=== PATIENT | male | born 1950 | race Caucasian/White ===

== ENCOUNTER 2019-07-25 10:53 | Inpatient (IN) ==
[2019-07-25] MEDS ORDERED: ATIVAN IV ONE ×2 (11:21→12:46)
--- NOTE | 2019-07-25 11:27 | EKG Report ---
Test Performed on : 07/25/2019 11:04:21 AM Test Reason : sob Blood Pressure : / mmHG Vent. Rate : 096 BPM Atrial Rate : 097 BPM P-R Int : 000 ms QRS Dur : 084 ms QT Int : 360 ms P-R-T Axes : 000 029 043 degrees QTc Int : 454 ms Accelerated Junctional rhythm. Abnormal ECG No previous ECGs available Unconfirmed Result
[2019-07-25 11:37] LABS: ALLEN TEST YES; BE -2.3 mmoll (-3.0-3.0); BLOOD TYPE ARTERIAL; HCO3-(ACT) 23.1 mmoll (20.0-26.0); METHB 0.3 % (0.0-1.5); MODALITY ROOM AIR; O2(CT) 10.4 mL/dL (15.0-23.0); O2HB 91.8 % (95.0-99.0); PCO2(98.6) 26 mmHg (35-45); PO2(98.6) 56 mmHg (60-100); SAMPLE BLOOD; SAO2 92.1 % (95.0-100.0)
[2019-07-25 11:41] LABS: BASO# 0.05 X1000 (0.0-0.2); BASO% 0.4 % (0.0-0.8); EOS# 0.13 X1000 (0.0-0.7); HEMATOCRIT 25.7 % (42.0-52.0); HEMOGLOBIN 8.5 g/dL (14.0-18.0); IMM GRAN# 0.07 X1000 (0.0-0.04); IMM GRAN% 0.5 % (0.0-0.5); LYMPH# 2.56 X1000 (1.2-3.4); LYMPH% 19.9 % (20.5-51.1); MCH 31.6 PG (27-31); MCHC 33.1 g/dL (33-37); MCV 95.5 FL (81-99); MONO# 0.69 X1000 (0.11-0.59); MONO% 5.4 % (1.7-9.3); MPV 12.4 FL (7.4-10.4); NEUT# 9.39 X1000 (1.4-6.5); NEUT% 72.8 % (42.2-75.2); PLT 264 X1000 (130-400); RBC 2.69 XMIL (4.7-6.1); WBC 12.89 X1000 (4.8-10.8)
--- NOTE | 2019-07-25 11:45 | Diag Imaging Result Doc PS360 ---
EXAM: CHEST-1 VIEW 07/25/2019 HISTORY: sob TECHNIQUE: AP portable at 1136 COMMENT: There is elevation of the left hemidiaphragm laterally. This may be due to fibrosis. The heart size and pulmonary vascularity are within normal limits. There are no previous chest radiographs. There is a similar appearance to the left hemidiaphragm on the topogram for the abdominal CT of 12/30/2015 however. IMPRESSION: No acute disease. Electronically signed by Franklyn Ponce 07/25/2019 11:42 AM
[2019-07-25 11:57] LABS: CALCIUM 9.1 mg/dL (8.8-10.2); CREATININE 1.2 mg/dL (0.7-1.2); POTASSIUM 4.9 mmol/L (3.5-5.1); TOTAL BILIRUBIN 0.25 mg/dL (0.20-1.00)
[2019-07-25 13:56] LABS: URINE SOURCE CLEAN CATCH
[2019-07-25 13:59] LABS: BILIRUBIN URINE NEGATIVE (NEGATIVE); BLOOD URINE NEGATIVE (NEGATIVE); COLOR YELLOW; GLUCOSE URINE NEGATIVE (NEGATIVE); KETONE URINE TRACE mg/dL (NEGATIVE); LEUKOCYTES URINE NEGATIVE (NEGATIVE); NITRITE URINE NEGATIVE (NEGATIVE); PH URINE 5.5; PROTEIN URINE NEGATIVE (NEGATIVE); SP GRAVITY URINE 1.019; TURBIDITY URINE CLEAR (CLEAR); UR EPITHELIAL CELLS <10 /HPF (<10); URINE BACTERIA NEGATIVE /HPF; URINE RBC <10 /HPF (<10); URINE WBC <10 /HPF (<10); UROBILINOGEN URINE NORMAL (NORMAL)
--- NOTE | 2019-07-25 14:07 | EKG Report ---
Test Performed on : 07/25/2019 11:41:35 AM Test Reason : REPEAT RHYTHM CHECK Blood Pressure : / mmHG Vent. Rate : 094 BPM Atrial Rate : 094 BPM P-R Int : 178 ms QRS Dur : 074 ms QT Int : 332 ms P-R-T Axes : 048 049 060 degrees QTc Int : 415 ms Normal sinus rhythm. Normal ECG When compared with ECG of 25-JUL-2019 11:04, (Unconfirmed) Sinus rhythm. has replaced Junctional rhythm. Unconfirmed Result
[2019-07-25 14:19] LABS: UR AMPHETAMINES QUAL NONE DETECTED (NONE DETECT); UR BARBITUATES QUAL NONE DETECTED (NONE DETECT); UR BENZODIAZEPIN QUAL PRESUMPTIVE POSITIVE (NONE DETECT); UR OPIATES QUAL NONE DETECTED (NONE DETECT)
[2019-07-25 14:20] LABS: UR CANNABINOIDS QUAL NONE DETECTED (NONE DETECT); UR COCAINE QUAL NONE DETECTED (NONE DETECT); UR METHADONE QUAL NONE DETECTED (NONE DETECT); UR OXYCODONE QUAL NONE DETECTED (NONE DETECT); UR PCP QUAL NONE DETECTED (NONE DETECT)
--- NOTE | 2019-07-25 15:15 | PROVIDER DOCUMENTATION ---
This chart was entered by Ivette Valentine Scribe, acting as scribe for Santana Arteaga MD. HPI-General Adult - General Chief Complaint: Dizziness Stated Complaint: SOB,LOW BP,DIZZINESS Time Seen by Provider: 07/25/19 11:16 Source: patient, family () Allergies/Adverse Reactions: Patient Allergies Allergy/AdvReac Type Severity Reaction Status Date / Time Sulfa (Sulfonamide Allergy Intermediate HIVES Verified 09/09/17 06:02 Antibiotics) [Sulfa(Sulfonamide Antibiotics)] Home Medications: Home Medication List Medication Instructions Recorded Confirmed Last Taken Type Alprazolam [Xanax] 1 mg PO HS 04/04/13 09/09/17 09/08/17 History Folic Acid/Multivit-Min/Lutein 1 each PO DAILY 04/04/13 09/09/17 09/08/17 History [Centrum Silver Chewable Tablet] Levothyroxine [Synthroid] 200 microgm PO DAILY 04/04/13 09/09/17 09/08/17 History Lisinopril [Zestril] 10 mg PO DAILY 04/04/13 09/09/17 09/08/17 History Tamsulosin [Flomax] 0.4 mg PO QHS 04/04/13 09/09/17 09/08/17 History Acetaminophen/Diphenhydramine 2 each PO HS 09/09/17 09/09/17 09/08/17 History [Tylenol Pm] Amoxicillin 500 mg PO TID #30 capsule 09/09/17 Unknown Rx Aspirin 81 mg PO QHS 09/09/17 09/09/17 09/08/17 History Ciproflox/Dexameth Otic Susp 4 drop LEFT EAR BID #1 bottle 09/09/17 Unknown Rx [Ciprodex Otic Suspension] Docusate Sodium [Stool Softener] 100 mg PO HS 09/09/17 09/09/17 09/08/17 History Magnesium 250 mg PO HS 09/09/17 09/09/17 09/08/17 History Mirtazapine 15 mg PO HS 09/09/17 09/09/17 09/08/17 History Naproxen 500 mg PO DAILY 09/09/17 09/09/17 09/08/17 History Ondansetron [Zofran Odt] 8 mg PO TID #30 tab.rapdis 09/09/17 Unknown Rx Sertraline HCl [Zoloft] 100 mg PO HS 09/09/17 09/09/17 09/08/17 History Triamterene/Hydrochlorothiazid 1 each PO DAILY 09/09/17 09/09/17 09/08/17 History [Dyazide 37.5-25 Capsule] Zinc 50 mg PO HS 09/09/17 09/09/17 09/08/17 History - History of Present Illness -Gen Adult Nature of Presenting Problems: 68 yowm presents to the ed with c/o 3 days of intermittent sob, tremors, numbness to forehead and BLE, dizziness and anxious. pt sts has an appointment with dr goff this afternoon but sts could not wait to see PCP. pt on exam is anxious, diaphoretic, pale (has hx of anemia), sob and c/o numbness to forehead and BLE. pt is c/o most about the stickers on his chest pulling his chest hair. pt sts he does not take pain medication and sts this morning sx became worse. Location of Pain/Injury: reports: face (numbness forehead), lower extremity (numnbness) Quality of Pain: reports: none Severity: reports: moderate Onset/Duration: reports: 3 days ago Timing: reports: still present, intermittent, getting worse (this am) Context/Activities at Onset: reports: light activity Modifying Factors: improves with: nothing Associated Symptoms: reports: diaphoresis, dizziness, shortness of breath, other (shaky in hands). denies: back/neck pain, chest pain, fever/chills, headaches, nausea, vomiting Similar Symptoms Previously?: No Recently seen or treated by another doctor?: No Review of Systems - Adult - REVIEW OF SYSTEMS - ADULT Constitutional: denies: chills, fever Eyes: reports: no symptoms reported Ears, Nose, Mouth & Throat: reports: no symptoms reported Cardiovascular: denies: chest pain, palpitations, syncope Respiratory: reports: see HPI, shortness of breath. denies: cough, excessive sputum production, wheezing Gastrointestinal: denies: abdominal pain, diarrhea, nausea, vomiting Genitourinary: reports: no symptoms reported Musculoskeletal: denies: back pain, neck pain Integumentary: reports: no symptoms reported Neurological: reports: see HPI, dizziness/vertigo, numbness (forehead and BLE), tremors. denies: ataxia, headache/migraines, loss of balance, slurred speech Psychiatric: denies: anxiety (denies hx), panic attacks (denies hx) Endocrine: reports: no symptoms reported Hematologic/Lymphatic: reports: no symptoms reported Allergic/Immunologic: reports: no symptoms reported All Other Systems: Reviewed and Negative Past History - Adult - PAST MEDICAL HISTORY-ADULT Review of Records: reports: Old Records Reviewed, Nursing Assessment Review, Medications Reviewed, Social history reviewed & non-contributory. Major Childhood Illnesses: reports: denies history Cardiovascular: reports: HTN Respiratory: reports: denies history Gastrointestinal: reports: denies history Genitourinary: reports: denies history Musculoskeletal: reports: denies history Hand Dominance: Right Handed Neurological: reports: denies history Psychiatric: reports: denies history Endocrine/Immune: reports: anemia, thyroid disorder Other Conditions: reports: denies history - PRIOR SURGERIES/PROCEDURES Surgical/Procedure History: reports: orthopedic (extremity), back/neck - IMMUNIZATION STATUS Childhood Immunizations: See Nurse Assessment Flu Vaccine: See Nurse Assessment - FAMILY HISTORY Family History: reviewed, not pertinent Physical Exam-General - PHYSICAL EXAM-ADULT Initial Vital Signs Reviewed: Yes - CONSTITUTIONAL General Appearance: alert, moderate distress, obese, anxious - EYES Eyes: pink conjunctivae, other (pinpoint pupils) - HEAD, EARS, NOSE, MOUTH & THROAT HENMT: moist mucous membranes, normal ENT inspection - NECK Neck: non-tender, full range of motion, normal inspection - RESPIRATORY Respiratory: chest non-tender, lungs clear, increased rate (26) - CARDIOVASCULAR Cardiovascular: normal peripheral pulses, regular rate, rhythm - CHEST (BREASTS) Chest/Breast: deferred - GASTROINTESTINAL (ABDOMEN) Abdominal Exam: normal bowel sounds, non tender, soft - GENITOURINARY Male Genitalia: normal prostate Rectal Exam: normal rectal tone, blood streaked stool. negative: hemorrhoids, mass Hemoccult Exam: heme positive stool - LYMPHATIC Lymphatic: no adenopathy - MUSCULOSKELETAL Back Exam: normal inspection, no CVA tenderness, no vertebral tenderness Extremity: normal range of motion, non-tender, normal inspection, normal capillary refill, pelvis stable, other (tremors noted in hands) - SKIN Integumentary: diaphoresis, pallor - NEUROLOGIC Neurologic: grossly normal - PSYCHIATRIC Psych/Mental Status: anxious, tearful Progress - PLAN OF CARE/RESULTS Progress/Plan/Lab Results: Vital Signs - 8 hr 07/25/19 11:11 Temperature 97.7 F Pulse Rate 98 H Respiratory Rate 22 Blood Pressure 128/82 O2 Sat by Pulse Oximetry 100 Laboratory Results - last 24 hr 07/25/19 11:03 POC Glucose 117 H Orders Category Date Time Status Nursing- Obtain EKG ONCE Care 07/25/19 11:18 Active CHEST-1 VIEW [RAD] Stat Exams 07/25/19 11:18 Ordered ABG [RESP] Routine Lab 07/25/19 11:21 Ordered BNP [PRO B-NATRIURETIC PEPTIDE] Stat Lab 07/25/19 11:05 Received CBC WITH ELECTRONIC DIFF [HEME] Stat Lab 07/25/19 11:05 Results COMPREHENSIVE METABOLIC PANEL [CHEM] Stat Lab 07/25/19 11:05 Received TROPONIN T Stat Lab 07/25/19 11:05 Received URINALYSIS W/POSS RFLX CULT [URINALYSIS] Stat Lab 07/25/19 11:18 Uncollected URINE DRUG SCREEN Stat Lab 07/25/19 11:22 Uncollected Lorazepam [Ativan] Med 07/25/19 11:21 Discontinued 0.5 mg IV NOW ONE EKG [EKG] Stat Ther 07/25/19 11:18 Draft Result Diagrams: 07/25/19 11:05 07/25/19 11:05 - REASSESSMENT Reassessment #1 Time Reassessed: 11:53 Status: improving Reassessment #2 Time Reassessed: 14:19 Status: improving - EKG 1 Time of EKG reading by physician:: 11:04 EKG Read and Signed by:: Santana Arteaga EKG Interpretation (*Must complete 3 of following elements*): Abnormal Rate: 96 Rhythm: accelerated junctional rhythm [place]: normal QRS: normal [place] Interval: normal ST Wave: normal 2 Time of EKG reading by physician:: 11:41 EKG Read and Signed by:: Santana Arteaga EKG Interpretation (*Must complete 3 of following elements*): Normal Rate: 94 Rhythm: nsr [place]: normal QRS: normal [place] Interval: normal ST Wave: normal Prior EKG Comparison: changes noted - XRAY 1 XRAY: Bilateral XRAY Study: Chest Impression: See EMR Report (EXAM: CHEST-1 VIEW 07/25/2019 HISTORY: sob TECHNIQUE: AP portable at 1136 COMMENT: There is elevation of the left hemidiaphragm laterally. This may be due to fibrosis. The heart size and pulmonary vascularity are within normal limits. There are no previous chest radiographs. There is a similar appearance to the left hemidiaphragm on the topogram for the abdominal CT of 12/30/2015 however. IMPRESSION: No acute disease. Electronically signed by Franklyn Ponce 07/25/2019 11:42 AM 07/25/19 1142 Interpreting Physician: Franklyn Ponce MD Dictated Date/Time: 07/25/19 1141 cc: Santana Arteaga MD; Nima Goff MD) - CONSULTS/PCP/HOSPITALIST Notification #1 *Consult/PCP/Hospitalist*: dr goff pcp Time Discussed: 14:34 Reason/Comments: phone consult #2 Consult: Dr Goff Time Discussed: 15:11 Reason/Comments: asked for routine orders and will see pt on floor Consult Disposition: Admit Departure - Departure Date of Disposition Decision: 07/25/19 Time of Disposition Decision: 15:12 DIAGNOSIS: Anemia, GI bleeding Disposition: ADMITTED INPATIENT 09 Certified Medical Emergency: Emergent Condition: Fair Referrals and Follow-Ups: Nima Goff MD [Primary Care Provider] - - Critical Care Note This patient required my direct & personal management of CC.: No Attestation - Physician/ KIMMIE Attestation Patient care was provided by Advanced Practice Provider:: No The physician spent face to face time with patient:: Yes Advanced Practice Provider documentation review:: Supervising physician onsite and consulted in the evaluation and care of this patient. The physician did have a face to face encounter with the patient. This chart was documented by the indicated scribe, (Ivette Valentine Scribe) and accurately reflects the services I performed and decisions made by me, Santana Modi MD, as attested by the provider's signature.
[2019-07-25] MEDS ORDERED: SODIUM CHLORIDE 0.9% INJ ONE ×2 (15:16→18:44)
[2019-07-25] MEDS ORDERED: PROTONIX IV ONE (15:16)
[2019-07-25] MEDS ORDERED: ZOFRAN IV PRN (18:32)
[2019-07-25] MEDS ORDERED: PROTONIX IV SCH (18:45)
[2019-07-25] MEDS: NS 1,000 ML IV SCH (19:09)
[2019-07-25] MEDS ORDERED: TYLENOL PO PRN (19:11)
[2019-07-25] MEDS: OFIRMEV 1000 MG/ISOTONIC SOLN 1,000 MG/100 ML BOTTLE IV PRN (19:30)
[2019-07-25 21:11] LABS: HEMATOCRIT 21.8 % (42.0-52.0); HEMOGLOBIN 7.1 g/dL (14.0-18.0)
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
[2019-07-26] MEDS: ATIVAN IV PRN ×2 (00:21→04:52)
[2019-07-26 02:10] LABS: HEMATOCRIT 21.6 % (42.0-52.0); HEMOGLOBIN 7.1 g/dL (14.0-18.0)
[2019-07-26] MEDS: OFIRMEV 1000 MG/ISOTONIC SOLN 1,000 MG/100 ML BOTTLE IV PRN (02:55)
[2019-07-26] MEDS: NS 1,000 ML IV SCH (08:35)
[2019-07-26] MEDS ORDERED: NS 500 ML IV SCH (09:00)
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
[2019-07-26] MEDS ORDERED: DIPRIVAN 1% ONE (10:50)
[2019-07-26] MEDS ORDERED: XYLOCAINE-MPF 2% ONE (10:51)
--- NOTE | 2019-07-26 11:14 | ENDOSCOPY OPERATIVE NOTE ---
[facility] ENDOSCOPY OPERATIVE NOTE , PATIENT: Rodolfo Mckeon ADMISSION DATE: 07/26/2019 MR#: [id number] : 1950 [facility]: [id number] EGD PROCEDURE REPORT PROCEDURE DATE: 07/26/2019 SURGEON: Gerson Kulkarni MD STATUS: inpatient RETAIL BUSINESS DEVELOPMENT MANAGER: PREOPERATIVE DIAGNOSIS: The patient is a 68 yr old male here for an EGD due to anemia and melena. PROCEDURE PERFORMED: EGD, diagnostic MEDICATIONS: Per Anesthesia TOPICAL ANESTHETIC: none CONSENT: The patient understands the risks and benefits of the procedure and understands that these r isks include, but are not limited to: sedation, allergic reaction, infection, perforation and/or bleeding. Alternative means of evaluation and treatment include, among others: physical exam, x-rays, and/or surgical intervention. The patient elects to proceed with this endoscopic procedure. HISORY AND PHYSICAL: 07/26/2019 function. Hand hygiene and appropriate measures for infection prevention was taken. After the risks, benefits and alternatives of the procedure were thoroughly explained, Informed consent was verified, confirmed and timeout was successfully executed by the treatment team. The patient was anesthetized with topical anesthesia and the LA37-v20 ([id number]) endoscope was introduced through the mouth and advanced to the proximal jejunum. Retroflex ion of the stomach was not performed. The gastroscope was then slowly withdrawn and removed. ESOPHAGUS: The mucosa of the esophagus appeared normal. The z-line was noted at 40cm from the incis ors. The z-line appeared normal. STOMACH: Normal gastric pouch. Will two visible deysi. No stigmata of recent bleeding. JEJUNUM / ILEUM: The mucosa appeared normal in the jejunum and ileum. Normal RYGB anatomy. SPECIMENS REMOVED: No ADVERSE EVENTS: There were no complications. POSTOPERATIVE DIAGNOSIS: 1. The mucosa of the esophagus appeared normal 2. The z-line was noted at 40cm from the incisors 3. Normal gastric pouch. Will two visible deysi. No stigmata of recent bleeding 4. The mucosa appeared normal in the jejunum and ileum 5. Normal RYGB anatomy RECOMMENDATIONS: Clear liquid diet Transition pantoprazole to PO once daily Prep with 4L golytely at 6PM NPO after MN Plan for diagnostic colonoscopy with Dr. Loza tomorrow REPEAT EXAM: Gerson Kulkarni MD eSigned: Gerson Kulkarni MD 07/26/2019 11:13 AM cc: PATIENT NAME: Rodolfo Mckeon MR#: [id number]
[2019-07-26 14:22] LABS: HEMATOCRIT 24.6 % (42.0-52.0)
[2019-07-26] MEDS ORDERED: GOLYTELY PO ONE (18:00)
--- NOTE | 2019-07-26 18:28 | PROGRESS NOTE ---
DATE: 07/26/2019 SUBJECTIVE: The patient was admitted yesterday with profound weakness and near-syncope. The patient's laboratory data was significant for a significant anemia and Hemoccult-positive stools. The patient was followed with serial hemoglobin and hematocrit evaluations overnight. As patient's hemoglobin decreased to 7.1 and he was symptomatic, he was transfused 1 unit of packed red blood cells. This morning, upon my arrival, patient noted no significant change in his symptoms. The patient was taken for EGD. Interestingly, no evidence of bleeding was identified. This afternoon, patient states he feels slightly improved after his blood transfusion. He is planning to prep for a colonoscopy tomorrow. Of note, patient states he has lost 30 pounds over the last several months. He describes this as being unexplained. He denies fevers, chills, nausea, vomiting, shortness of breath, or chest discomfort at present time. OBJECTIVE: Vital signs: T-max 97.8 degrees, heart rate 73 to 96, respirations 18 to 20, blood pressure 100 to 128 over 61 to 82. General: Well nourished, well developed, no acute distress, pale. Cardiovascular: Regular rate and rhythm. No significant murmurs, rubs, or gallops. Pulmonary: Clear to auscultation bilaterally. Abdomen: Soft, nontender, nondistended. Positive bowel sounds. Extremities: Moves all extremities well. No significant clubbing, cyanosis, or edema. Dermatologic: Evaluation reveals no evidence of rash. LABORATORY DATA: Hemoglobin and hematocrit after transfusion of 1 unit of packed red blood cells returned at 8.0 and 24.6. ASSESSMENT AND PLAN: 1. Gastrointestinal bleed - Upon admission, this is presumed to be upper in etiology secondary to melena. The patient was taken for EGD today. Interestingly, this returned negative. At this point, the source is likely small bowel versus colon. We will continue patient on Protonix q.12 hours. We will hold aspirin and anti-inflammatories. Colonoscopy is planned for tomorrow. If colonoscopy returns negative, we will plan CT scan of the abdomen and pelvis, as well as the probable pill endoscopy. 2. Anemia - Because patient was symptomatic, patient was transfused 1 unit of packed red blood cells once his hemoglobin reached 7.1. We will continue to follow serial hemoglobin and hematocrit evaluations. We will transfuse as necessary. 3. Syncopal episode - This likely was secondary to his blood loss anemia. Overall, patient states he feels better this afternoon. 4. Profound weakness - Once again, this is likely secondary to his acute illness. He has achieved some improvement after transfusion. We will follow this. 5. Hypothyroidism - We will resume thyroid replacement. 6. Osteoarthritis - We will continue to hold naproxen therapy. We will continue as-needed IV Tylenol. 7. Polymyalgia rheumatica - Patient currently is taking 2.5 mg of prednisone every other day. At this point, the risk outweigh the benefits of treatment. We will hold his steroids for now. We will consider whether adding steroid intervention is appropriate depending on his response to discontinuing steroid therapy. 8. Disposition - At this point, patient continues to require half-way care in a hospital setting. We will plan discharge home once appropriate. cc: Nima Goff MD
[2019-07-26] MEDS: ZOLOFT PO SCH (20:15)
[2019-07-26] MEDS: COLACE PO SCH (20:16)
[2019-07-26] MEDS: VITAMIN B-12 PO SCH (20:16)
[2019-07-26] MEDS: MAGNESIUM GLUCONATE PO SCH (20:16)
[2019-07-26] MEDS: REMERON PO SCH (20:16)
[2019-07-26] MEDS: FLOMAX PO SCH (20:16)
[2019-07-26 21:52] LABS: HEMATOCRIT 25.6 % (42.0-52.0); HEMOGLOBIN 8.4 g/dL (14.0-18.0)
[2019-07-27] MEDS: XANAX PO SCH ×2 (00:50→22:55)
[2019-07-27] MEDS: NS 1,000 ML IV SCH ×2 (04:22→17:26)
[2019-07-27] MEDS: SYNTHROID PO SCH (06:20)
[2019-07-27] MEDS ORDERED: PROTONIX PO SCH (07:00)
[2019-07-27] MEDS ORDERED: XYLOCAINE-MPF 2% ONE (07:03)
[2019-07-27] MEDS ORDERED: ROBINUL ONE (07:03)
[2019-07-27 07:07] LABS: HEMATOCRIT 23.2 % (42.0-52.0); HEMOGLOBIN 7.5 g/dL (14.0-18.0)
[2019-07-27] MEDS ORDERED: FENTANYL ONE (09:17)
[2019-07-27] MEDS ORDERED: DIPRIVAN 1% ONE ×2 (09:17→09:19)
[2019-07-27] MEDS ORDERED: ZOFRAN ONE (10:12)
--- NOTE | 2019-07-27 10:50 | ENDOSCOPY OPERATIVE NOTE ---
[facility] ENDOSCOPY OPERATIVE NOTE , PATIENT: Rodolfo Mckeon ADM DATE: MR #: [id number] : 1950 COLONOSCOPY PROCEDURE REPORT PROCEDURE DATE: 07/27/2019 SURGEON: Santo Loza MD STATUS: inpatient GENERATION TECHNOLOGIST: Noe Cloud and Sue Caruso PREOPERATIVE DIAGNOSIS: The patient is a 68 yr old male here for a colonoscopy due to anemia, non-sp ecific and GI bleed. PROCEDURE PERFORMED: Colonoscopy, diagnostic MEDICATIONS: Per Anesthesia PREP TYPE: GoLytely
[2019-07-27 13:45] LABS: HEMOGLOBIN 8.6 g/dL (14.0-18.0)
[2019-07-27] MEDS: CARAFATE PO SCH ×2 (17:26→22:51)
[2019-07-27] MEDS: SODIUM CHLORIDE 0.9% INJ SCH ×2 (17:26→21:06)
[2019-07-27] MEDS: PROTONIX IV SCH ×2 (17:26→21:06)
[2019-07-27] MEDS: VICON-C PO SCH (17:29)
[2019-07-27] MEDS: PERIDEX MT SCH (20:13)
[2019-07-27] MEDS: VITAMIN B-12 PO SCH (20:14)
[2019-07-27] MEDS: REMERON PO SCH (20:14)
[2019-07-27] MEDS: COLACE PO SCH (20:14)
[2019-07-27] MEDS: ZOLOFT PO SCH (20:14)
[2019-07-27] MEDS: FLOMAX PO SCH (20:14)
[2019-07-27] MEDS: MAGNESIUM GLUCONATE PO SCH (20:15)
--- NOTE | 2019-07-27 20:41 | PROGRESS NOTE ---
DATE: 07/27/2019 SUBJECTIVE: Upon my arrival this morning, patient stated overall he was feeling reasonably well. Patient was taken for a colonoscopy. Interestingly, only old blood in the entire colon extending up to the cecum was noted. No active bleeding was identified in the colon. With this finding and a negative EGD, it was felt that the bleed was likely secondary to bypass or Mckenna limb. The patient was transfused 2 units of packed red blood cells. Transfer to [facility] was offered, but patient preferred to be maintained here. This evening, patient is receiving 2 units of packed red blood cells. Overall, patient states he feels well. He denies current nausea, vomiting, shortness of breath, chest pain, or hematochezia or melena. OBJECTIVE: Vital Signs: T-max 98.5, heart rate 71 to 106, respirations 16 to 18, blood pressure 107 to 127 over 58 to 68. General: Well nourished, well developed male in no acute distress. Cardiovascular: Regular rate and rhythm. No significant murmurs, rubs, or gallops. Pulmonary: Clear to auscultation bilaterally. Abdomen: Soft, nontender, nondistended. Positive bowel sounds. Extremities: Moves all extremities well. No significant clubbing, cyanosis, or edema. Dermatologic: Reveals no evidence of rash. LABORATORY DATA: Hemoglobin 7.5, hematocrit 23.2. ASSESSMENT AND PLAN: 1. Gastrointestinal bleed - as above, EGD and colonoscopy revealed no evidence of acute bleeding. Old blood was noted throughout the colon. It is felt this likely is secondary to bypass or a Mckenna limb. I cannot rule out small intestinal bleed/pathology. At this point, our interventions are somewhat limited. We will continue IV Protonix every 12 hours. We will hold aspirin and anti-inflammatories. At this point, without a significant bleed, I do feel supportive care is most appropriate. If this resolves on its own, we will plan outpatient evaluation by a bariatric surgeon. If this persists, we will need to consider whether further intervention is warranted. Because of his weight loss and bleeding, we will plan CT scan of the abdomen tomorrow. 2. Anemia - as above, patient is being transfused 2 units of banked packed red blood cells. We will continue to follow serial hemoglobin and hematocrit evaluations. 3. Syncopal episode - this likely secondary to blood loss anemia. Overall, patient has achieved improvement. He has had no further episodes with transfusion. 4. Profound weakness - this too is secondary to profound anemia. We will continue to treat above- mentioned condition. 5. Hypothyroidism - we will continue patient on replacement. 6. Osteoarthritis - patient's naproxen has been held. We will continue patient on IV Tylenol as needed. 7. Polymyalgia rheumatica - patient's prednisone has been held while hospitalized. Prior to admission, he was taking 2.5 every other day. At the present time, he is asymptomatic. We will consider whether this can be discontinued, as his symptoms are controlled. 8. Disposition - at this point, the patient continues to require custodial care in a hospital setting. We will plan discharge home once appropriate. cc: Nima Goff MD
[2019-07-28] MEDS: NS 1,000 ML IV SCH (01:09)
[2019-07-28] MEDS: CARAFATE PO SCH ×4 (05:38→21:52)
[2019-07-28] MEDS: SYNTHROID PO SCH (06:38)
[2019-07-28 07:10] LABS: BASO# 0.03 X1000 (0.0-0.2); BASO% 0.4 % (0.0-0.8); EOS# 0.35 X1000 (0.0-0.7); EOS% 4.3 % (0.0-10.0); HEMATOCRIT 27.9 % (42.0-52.0); HEMOGLOBIN 9.2 g/dL (14.0-18.0); IMM GRAN# 0.02 X1000 (0.0-0.04); IMM GRAN% 0.2 % (0.0-0.5); LYMPH# 2.05 X1000 (1.2-3.4); LYMPH% 25.2 % (20.5-51.1); MCH 30.7 PG (27-31); MONO# 0.51 X1000 (0.11-0.59); MONO% 6.3 % (1.7-9.3); MPV 11.9 FL (7.4-10.4); NEUT# 5.18 X1000 (1.4-6.5); NEUT% 63.6 % (42.2-75.2); PLT 236 X1000 (130-400); RDW 16.7 % (11.5-14.5); WBC 8.14 X1000 (4.8-10.8)
[2019-07-28 07:35] LABS: ALB/GLOB RATIO 1.6; ALBUMIN 3.1 g/dL (3.5-5.0); CALCIUM 8.3 mg/dL (8.8-10.2); CREATININE 1.2 mg/dL (0.7-1.2); POTASSIUM 4.2 mmol/L (3.5-5.1); TOTAL BILIRUBIN 0.38 mg/dL (0.20-1.00)
[2019-07-28] MEDS: PERIDEX MT SCH ×3 (10:40→21:17)
[2019-07-28] MEDS: PROTONIX IV SCH ×2 (10:46→21:19)
[2019-07-28] MEDS: SODIUM CHLORIDE 0.9% INJ SCH ×2 (10:46→21:21)
[2019-07-28] MEDS: VICON-C PO SCH (10:54)
--- NOTE | 2019-07-28 12:01 | Diag Imaging Result Doc PS360 ---
EXAM: CT ABD/PELVIS W/PO AND IV CON INDICATION: GI bleed/ unexplained weight loss TECHNIQUE: This exam was performed using automated exposure control, adjustment of mA or kV according to patient size, and/or use of iterative reconstruction technique. COMPARISON: 12/30/2015 FINDINGS: There are fine calcified stones layering in the gallbladder lumen, stable. There is no evidence of pericholecystic inflammatory change. There is a vague focus of hypodensity involving the right hepatic lobe on image 37 of series 4 with no discrete enhancement. It is nonspecific. It measures up to 1.9 cm. It could represent focal fatty infiltration or possibly a cyst containing proteinaceous debris. It appears stable. The liver is unremarkable, otherwise. The spleen and adrenal glands are unremarkable. There is stable pancreatic atrophy, mainly at the head of the pancreas. The pancreas is unremarkable, otherwise. There are multiple renal cysts. Most of these can be seen on the previous study and a couple are slightly larger. A few appear to contain proteinaceous debris or blood products based on density. There are multiple intrarenal stones bilaterally that are nonobstructing. There is a 5 to 6 mm calcification in the pelvis on the left that is closely associated with the distal ureter. However, it appears to be stable as compared to the previous study in 2016. This could represent a chronic partially obstructing stone in the distal ureter. The left renal collecting system is mildly prominent but it is less so than the previous study. The urinary bladder is partially distended and is unremarkable, otherwise. The appendix is normal. There are a few sigmoid colonic diverticula but there is no evidence of diverticulitis. There is a short segment of the colon near the hepatic flexure that exhibits mild circumferential wall thickening. This may simply be due to peristalsis. However, by CT, a neoplasm cannot be excluded. There is evidence of a prior gastric bypass. The GI tract is grossly unremarkable, otherwise. There is no definite abdominal or pelvic lymphadenopathy. No focal inflammatory changes, free abdominal gas, or free fluid is identified. There is advanced spondylosis. There is no evidence of acute osseous abnormality. IMPRESSION: 1.Questionable mild circumferential wall thickening involving the colon near the hepatic flexure (see image 56, series 4). Please see above discussion. 2.Extensive bilateral nephrolithiasis with a calcification that is very closely associated with the distal left ureter but it appears stable as compared to the previous study. It may be a chronic partially obstructing stone. The left renal collecting system is mildly prominent but less so than the previous study. Please correlate clinically. 3.Other incidental/nonacute findings detailed above. Electronically signed by Jordi Cronin 07/28/2019 11:59 AM
--- NOTE | 2019-07-28 20:43 | CONSULTATION ---
DATE OF CONSULTATION: 07/28/2019 ATTENDING AND REFERRING PHYSICIAN: Dr. Goff. CHIEF COMPLAINT: GI bleed and anemia. HISTORY OF PRESENT ILLNESS: This 68-year-old male was admitted with a GI bleed and symptomatic anemia. He is currently undergoing evaluation for that. He states he has a long history of kidney stones and had shockwave lithotripsy by Dr. Berger in [place] about 3 years ago. He also has some obstructive voiding symptoms and is on Flomax 0.4 mg a day. The patient last saw Dr. Berger in early 2017. He states he thinks his PSA was recently checked (June 02). He states he is starting to have some increasing problems voiding. He has had no hematuria. He denies any flank pains. He had a CT scan with contrast today that reveals bilateral nonobstructing renal stones, bilateral renal cyst that appears stable and a possible left distal ureteral stone approximately 6 mm in diameter. This could be a phlebolith immediately adjacent to the ureter. There was no hydroureteronephrosis. PAST MEDICAL HISTORY: Obesity, cholelithiasis, depression, diabetes, history of diverticulitis, gout, hypertension, hypothyroidism, polymyalgia rheumatica. CURRENT MEDICATIONS: Documented on the chart and include Flomax at 0.4 mg a day. PAST SURGICAL HISTORY: Gastric bypass, right knee scope, left shoulder dislocation and clavicle fracture. SOCIAL HISTORY: He denies tobacco use for over 20 years. He denies alcohol use. ALLERGIES: He is allergic to sulfonamides. REVIEW OF SYSTEMS: He states he has some problems with depression but overall other than weakness and dizziness if he stands he is doing well. He states he has some problems walking. He feels his diabetes is under control. He denies recent pulmonary problems. He has had no chest pain. PHYSICAL EXAMINATION: A obese, age apparent, normally developed, white male, oriented in all ways and cooperative.HEENT: Normal for age. Lungs: Clear. Cardiovascular: Regular rate and rhythm. No murmurs appreciated. Abdomen: Well healed scars. Mildly protuberant with a large pannus. No hepatosplenomegaly appreciated, normal bowel sounds. Nontender. Back: No CVA tenderness. : Uncircumcised male. Both testes are down. Scrotal exam is normal. No inguinal hernias. Rectal: Normal sphincter tone. Prostate about 50 g, smooth and symmetric. Extremities: No clubbing, cyanosis, or edema. Neuro: No focal deficits. LABORATORY EVALUATION: White count of 8.14, hemoglobin 9.2, hematocrit of 27.9 and platelets 236,000. Serum electrolytes have a sodium 141, potassium 4.2, chloride 111, bicarb 22, BUN 19, creatinine 1.2. His PSA recorded in the chart in [address] stone search is as noted in the history of present illness. IMPRESSION: 1. Gastrointestinal bleed with symptomatic anemia. 2. Bilateral nonobstructing renal stones and simple renal cysts. 3. Possible left distal ureteral stone without obstruction. RECOMMEND: 1. Discussed with the patient cystoscopic exam, left retrograde ureteral pyelogram and if a stone is seen ureteroscopy and stone removal. Discussed that since he is asymptomatic without evidence of hydronephrosis this would be scheduled for Wednesday. He states he wants to think about this and further discuss it with Dr. Goff and Dr. Aguilar. This assumes his GI bleeding has stopped. 2. Discussed adding Avodart for obstructive voiding. Discussed that he could add another Flomax to his regimen but that could possibly contribute to hypotension. Discussed that Avodart will take 3 months before any noticeable improvement in voiding would occur. He states he will discuss this with Dr. Goff. Thank you for this consultation. cc: MD Nima Escamilla MD [facility]STER[facility]andi
[2019-07-28] MEDS: ZOLOFT PO SCH (21:17)
[2019-07-28] MEDS: FLOMAX PO SCH (21:18)
[2019-07-28] MEDS: VITAMIN B-12 PO SCH (21:18)
[2019-07-28] MEDS: COLACE PO SCH (21:18)
[2019-07-28] MEDS: REMERON PO SCH (21:19)
[2019-07-28] MEDS: XANAX PO SCH (21:19)
--- NOTE | 2019-07-28 22:27 | PROGRESS NOTE ---
DATE: 07/28/2019 SUBJECTIVE: Upon my arrival this morning, patient states he felt reasonably well after transfusions. Patient was taken for a CT scan of the abdomen and pelvis. Interestingly, this returned with questionable mild circumferential wall thickening involving the colon near the hepatic flexure. Extensive bilateral nephrolithiasis with a calcification that is very closely associated with the distal left ureter, but appears to be stable, was noted. This was felt to possibly be associated with a chronically partially obstructing stone with mildly prominent left renal collecting system. Dr. Zaragoza was consulted. Surgical intervention was offered. This evening, patient states his condition is largely unchanged. P.o. intake is adequate. Patient continues to have dark bowel movements. He denies fevers, chills, nausea, vomiting, shortness of breath, or chest discomfort. OBJECTIVE: Vital Signs: T-max 99.1 degrees, heart rate 67 to 116, respirations 16 to 18, blood pressure 109 to 118 over 60 to 70. General: Well nourished, well developed, in no acute distress. Cardiovascular: Regular rate and rhythm. No significant murmurs, rubs, or gallops. Pulmonary: Clear to auscultation bilaterally. Abdomen: Soft, nontender, nondistended. Positive bowel sounds. Extremities: Moves all extremities well. No significant clubbing, cyanosis, or edema. Dermatologic: Evaluation reveals no evidence of rash. LABORATORY DATA: White blood cell count 8.14, hemoglobin 9.2, hematocrit 27.9, platelet count 236,000. Sodium 141, potassium 4.2, chloride 111, bicarb 22, BUN 19, creatinine 1.2, glucose 96, calcium 8.3, total bilirubin 0.38, total protein 5.0, albumin 3.1, alkaline phosphatase 69, AST 9, ALT 6. ASSESSMENT AND PLAN: 1. Gastrointestinal bleed: Esophagogastroduodenoscopy returned negative. Colonoscopy suggested no evidence of acute bleeding, but old blood was noted throughout the colon. It was felt this likely was secondary to a bleed in the bypassed stomach or a Mckenna limb. Small intestine pathology is also to be considered. Unfortunately, our options are somewhat limited at the present time. For now, we will continue intravenous Protonix every 12 hours. We will hold antiplatelet agents and antiinflammatories. If the bleeding subsides, we will plan evaluation by a bariatric surgeon as an outpatient. If patient's bleeding persists, we will plan a transfer to [facility] for inpatient bariatric consultation and possible intervention on Wednesday. We will continue to support patient with transfusions as necessary. 2. Anemia: Thus far, patient has been transfused 3 units while hospitalized. When patient's hemoglobin decreases to 7, he becomes very symptomatic. Through the weekend, we will continue serial hemoglobin and hematocrit evaluations. We will transfuse for a hemoglobin less than 8. 3. Syncopal episode: This likely was secondary to blood loss anemia. He has had no further episodes since transfusions were initiated. 4. Profound weakness: Once again, this likely is secondary to anemia. We will remain aware. 5. Distal left ureteral calcification, possibly representing a chronic partially obstructing stone: I appreciate Dr. Zaragoza' consultation. Patient's renal function at the present time is acceptable. Because of his current condition, we will hold off on urologic intervention at present time. Once his gastrointestinal pathology has been addressed, we will plan to pursue urologic evaluation. If patient demonstrates renal dysfunction or progression of symptoms, we will be forced to do this on a more urgent basis. 6. Hypothyroidism: We will continue patient on replacement. 7. Osteoarthritis: Patient's naproxen has been held. We will continue intravenous Protonix as needed. 8. Polymyalgia rheumatica: Patient has been treated with prednisone 2.5 mg every other day. Since hospitalization, this has been held. His symptoms are currently controlled. We will continue to monitor this and resume if necessary. 9. Disposition: At this point, patient continues to require alf care in a hospital setting. We will plan discharge home once appropriate. cc: Nima Goff MD
[2019-07-28] MEDS: OFIRMEV 1000 MG/ISOTONIC SOLN 1,000 MG/100 ML BOTTLE IV PRN (23:59)
[2019-07-29] MEDS: MAGNESIUM GLUCONATE PO SCH ×2 (00:49→21:45)
[2019-07-29] MEDS: CARAFATE PO SCH (05:37)
[2019-07-29] MEDS: SYNTHROID PO SCH ×2 (05:37→06:10)
[2019-07-29 07:10] LABS: BASO# 0.03 X1000 (0.0-0.2); BASO% 0.4 % (0.0-0.8); EOS# 0.37 X1000 (0.0-0.7); EOS% 5.2 % (0.0-10.0); HEMATOCRIT 25.8 % (42.0-52.0); HEMOGLOBIN 8.3 g/dL (14.0-18.0); LYMPH# 2.33 X1000 (1.2-3.4); LYMPH% 32.5 % (20.5-51.1); MCH 30.2 PG (27-31); MCHC 32.2 g/dL (33-37); MCV 93.8 FL (81-99); MONO# 0.49 X1000 (0.11-0.59); MONO% 6.8 % (1.7-9.3); MPV 11.4 FL (7.4-10.4); NEUT# 3.95 X1000 (1.4-6.5); NEUT% 55.1 % (42.2-75.2); PLT 236 X1000 (130-400); RBC 2.75 XMIL (4.7-6.1); WBC 7.17 X1000 (4.8-10.8)
[2019-07-29 07:52] LABS: CALCIUM 8.2 mg/dL (8.8-10.2); CREATININE 1.2 mg/dL (0.7-1.2); POTASSIUM 3.6 mmol/L (3.5-5.1)
[2019-07-29] MEDS: PROTONIX IV SCH ×2 (09:14→21:46)
[2019-07-29] MEDS: SODIUM CHLORIDE 0.9% INJ SCH ×2 (09:14→21:47)
[2019-07-29] MEDS: VICON-C PO SCH (09:14)
[2019-07-29] MEDS: PERIDEX MT SCH ×2 (09:15→21:46)
[2019-07-29] MEDS ORDERED: NS 500 ML ONE (10:09)
[2019-07-29] MEDS ORDERED: NS 500 ML IV ONE (11:15)
[2019-07-29] MEDS ORDERED: SANDOSTATIN IV ONE (11:34)
--- NOTE | 2019-07-29 12:31 | PROGRESS NOTE ---
DATE: 07/29/2019 SUBJECTIVE: I spoke with Dr. Alvarenga and Dr. Goff this morning about this particular case which appears to be an upper GI bleed associated with bariatric surgery in the remote past. The patient has no complaints. He states he is not hurting. He is eating regular food and tolerating diet well with no other symptomatology other than melenic stools. OBJECTIVE: Vital Signs: 98.3, 89, 20, 128/68, 99% saturated on room air. PHYSICAL EXAMINATION: The patient is alert, oriented, conversive and appropriate. Sclerae are anicteric. Cardiovascular: Regular and not tachycardic. Lungs: Clear. Extremities: Show slightest trace edema in the pretibial tibial areas, but otherwise normal. LABORATORY: Hemoglobin is 8.3 down from 9.2 yesterday post transfusion. BUN 21, creatinine 1.2. ASSESSMENT AND PLAN: 1. The patient's gastrointestinal bleed continues. He is on IV Protonix, but it is quite likely that he will end up in surgery to try and correct this. He will continue on IV Protonix for now. We are going to transfuse another unit and recheck his hematocrit tomorrow. I have taken the liberty of adding a single dose of octreotide to try and cause some type of vasoconstriction in the splanchnic bed that may help. Hopefully this will stem the tide of bleeding and maybe he can self correct prior to surgery. 2. Anemia. Aware. He will be getting his 4th unit of packed cells today. 3. Syncopal episode. This is very likely due to his blood loss anemia. 4. Weakness. Aware. 5. The patient was found rather incidentally to have a left ureteral calcification. Dr. Zaragoza has been consulted and would like to take stone out, but for the time being I think that the GI bleed aspect is much more pressing and the procedure to remove the stone should be put off until he is more stable. 6. Hypothyroidism. Aware. 7. Polymyalgia rheumatica. The patient is off of prednisone at the present time. 8. The patient continues to require inpatient care. We will recheck labs tomorrow and continue the present therapy. We will transfuse as needed. cc: MD Nima Villaseñor MD MTDD
[2019-07-29] MEDS: XANAX PO SCH (21:45)
[2019-07-29] MEDS: ICAR-C PO SCH (21:45)
[2019-07-29] MEDS: FLOMAX PO SCH (21:45)
[2019-07-29] MEDS: ZOLOFT PO SCH (21:46)
[2019-07-29] MEDS: REMERON PO SCH (21:46)
[2019-07-29] MEDS: VITAMIN B-12 PO SCH (21:46)
[2019-07-29] MEDS: COLACE PO SCH (21:46)
--- NOTE | 2019-07-29 22:11 | GASTROENTEROLOGY PROGRESS NOTE ---
DATE: 07/29/2019 SUBJECTIVE: Patient is resting in chair. His is present at the bedside. The patient has not had any bowel movement today. He has continued to slowly drift his hematocrit down. He has received so far, 4 units of blood transfusion. Last transfusion was done yesterday. He denies any nausea, vomiting, vomiting blood. He denies any abdominal pain. He denies any bowel movements today. OBJECTIVE: Vital Signs: Temperature 98.6 degrees, pulse of 91, respiratory rate of 16, blood pressure 125/71, saturating 98% on room air. Body weight of 245 pounds 4 ounces. BMI of 31.5 kg/m2. General: Obese. Sitting in chair, in no acute distress. HEENT: Pale. No icterus. Neck: Supple. Abdomen: Obese, soft, nontender, nondistended. No guarding or rebound. Extremities: No cyanosis or clubbing. Neurologic: Alert, awake, oriented x3. LABORATORY AND DIAGNOSTIC DATA: Hemoglobin and hematocrit is 8.3 and 25.8, white count of 7.17, platelet count of 236,000. Sodium of 140, potassium 3.6, chloride of 108, bicarbonate of 22, anion gap 11, BUN of 21, creatinine of 1.2, glucose of 97, calcium 8.2. AST 9, ALT 6, alkaline phosphatase 69, total protein is 5, albumin of 3.1. Stool occult blood on 07/25/2019, was positive. Abdominal and pelvic CT scan on 08/14/2019, showed: 1. Questionable mild circumferential wall thickening involving the colon near the hepatic flexure. 2. Extensive bilateral nephrolithiasis with calcification that is very closely associated with the distal left ureter, but it appears stable as compared to the previous study. It may be a chronic, partially obstructing stone. The left renal collecting system is mildly prominent, but less so than the previous study. 3. A few sigmoid colonic diverticula were noted. No evidence of diverticulitis. There was evidence of prior gastric bypass. The GI tract is grossly unremarkable otherwise. There is advanced spondylosis and there is a vague focus of hyperdensity involving the right hepatic lobe. It is nonspecific, measures up to 1.9 cm. It could represent focal fatty infiltration or possibly a cyst containing proteinaceous debris. It appears stable. The liver is unremarkable otherwise. The spleen and adrenal glands are unremarkable. There is stable pancreatic atrophy mainly at the head of the pancreas. The pancreas is unremarkable otherwise. There are multiple renal cysts. IMPRESSION AND PLAN: 1. Gastrointestinal bleeding. He has received 4 units of blood transfusion. At this moment, we will try the full liquid diet to see if it helps with his GI bleeding. He will continue on PPIs b.i.d. We will transfuse as needed. We will start on Iron C b.i.d. 2. Anemia. Continue to watch for now. Transfuse as needed. 3. Status post gastric bypass. The patient will take small frequent meals and avoid any NSAIDs. 4. Chronic constipation. We will continue on Colace at bedtime. 5. Renal stones. Urology is on board. 6. Diverticulosis in sigmoid. Aware. 7. Hypothyroidism. He is on Synthroid once daily. 8. If the patient continues to drop his hematocrit, then we may have to do inpatient transfer to [facility] versus outpatient followup with Bariatric surgeon at [place]. In the interim, we will continue with supportive care. The above plans were discussed with the patient and family at bedside, and all questions were answered. Please call us with any further questions. cc: MD Nima Nesbitt MD MTDKandi
[2019-07-30] MEDS: SYNTHROID PO SCH (06:19)
[2019-07-30 06:46] LABS: BASO# 0.03 X1000 (0.0-0.2); BASO% 0.4 % (0.0-0.8); EOS# 0.48 X1000 (0.0-0.7); EOS% 5.7 % (0.0-10.0); HEMATOCRIT 28.5 % (42.0-52.0); HEMOGLOBIN 9.1 g/dL (14.0-18.0); LYMPH# 2.18 X1000 (1.2-3.4); LYMPH% 25.8 % (20.5-51.1); MCH 30.5 PG (27-31); MCHC 31.9 g/dL (33-37); MCV 95.6 FL (81-99); MONO% 7.1 % (1.7-9.3); MPV 11.2 FL (7.4-10.4); NEUT# 5.16 X1000 (1.4-6.5); PLT 256 X1000 (130-400); RBC 2.98 XMIL (4.7-6.1); RDW 16.1 % (11.5-14.5); WBC 8.45 X1000 (4.8-10.8)
[2019-07-30 07:14] LABS: CALCIUM 7.6 mg/dL (8.8-10.2); CREATININE 1.4 mg/dL (0.7-1.2); POTASSIUM 4.2 mmol/L (3.5-5.1)
[2019-07-30] MEDS: VICON-C PO SCH ×2 (09:15→13:47)
[2019-07-30] MEDS: PERIDEX MT SCH ×2 (09:15→21:55)
[2019-07-30] MEDS: SODIUM CHLORIDE 0.9% INJ SCH ×2 (09:15→22:07)
[2019-07-30] MEDS: PROTONIX IV SCH ×2 (09:15→21:55)
[2019-07-30] MEDS ORDERED: SANDOSTATIN IV ONE (09:25)
--- NOTE | 2019-07-30 10:10 | PROGRESS NOTE ---
DATE: 07/30/2019 SUBJECTIVE: The patient has no complaints. The patient is dressed in a T-shirt and gym shorts, sitting up in the chair. He states that he feels quite well. He had a bowel movement this morning which he described as "black". He has no abdominal pain. He is confused as to why he was put back on a liquid diet. OBJECTIVE: Vital Signs: 98.0, 78, 112/67, 96% saturated on room air. Physical Examination: General: He is a well-developed, well-nourished white male in no acute distress. Lungs: Clear. Cardiovascular: Regular. Neuropsychiatric: Normal. Laboratory: White cell count is 8.45, hemoglobin is 9.1 which is up from 8.3 after receiving 1 unit of packed red cells yesterday. BUN is 18, creatinine is slightly elevated at 1.4. ASSESSMENT AND PLAN: 1. The patient continues on intravenous Protonix. Dr. Loza has discontinued his Carafate and put him back on a liquid diet. The patient received 1 unit of packed red cells yesterday and his hemoglobin went up an appropriate amount. There were no significant side effects of his octreotide injection. I want to repeat that today in the hopeful wish that it would help to vasoconstrict blood vessels in the area of the bleed and maybe slow the amount of bleeding that he is undergoing. 2. The patient's anemia continues. He is symptomatic with hemoglobins less than 8. He seems to be well above that today. We will see what it is tomorrow. 3. Syncopal episode. Aware. Likely due to blood loss anemia. 4. Weakness. Aware. 5. The patient's left ureteral calculus is being followed by Dr. Zaragoza. That is a secondary concern at the present time due to the severity of gastrointestinal bleeding. We will need to monitor his creatinine a little more closely since it did go up. I do not believe he had significant hydronephrosis on that side but we will again need to be aware of this. 6. Hypothyroidism. Aware. 7. Polymyalgia rheumatica. The patient is off prednisone. 8. The patient continues to require inpatient monitoring of his hemoglobin and hematocrit. Dr. Goff will discuss definitive therapy and possible transfer tomorrow. The patient is aware of this. There were no family members present today. cc: MD Nima Villaseñor MD
[2019-07-30] MEDS: ICAR-C PO SCH ×2 (13:45→21:55)
[2019-07-30 16:47] LABS: HEMATOCRIT 31.7 % (42.0-52.0); HEMOGLOBIN 10.3 g/dL (14.0-18.0); MCH 30.6 PG (27-31); MCHC 32.5 g/dL (33-37); MCV 94.1 FL (81-99); MPV 11.5 FL (7.4-10.4); RBC 3.37 XMIL (4.7-6.1); RDW 15.9 % (11.5-14.5); WBC 9.26 X1000 (4.8-10.8)
--- NOTE | 2019-07-30 18:31 | GASTROENTEROLOGY PROGRESS NOTE ---
DATE: 07/30/2019 SUBJECTIVE: Patient resting in chair, his present bedside. Patient had 2 bowel movements today which were dark and formed stools. He denies any nausea, vomiting, vomiting blood. Denies any bright red blood in the stools. He feels slightly weak today than yesterday. Yesterday he had no bowel movement the whole day. Vitals: Temperature 98.5 degrees, pulse 68, respiratory rate 18, blood pressure 109/60 saturating 100% room air, body weight of 245 pounds 4 ounces, BMI of 31.5 kg meter square. Patient is obese sitting in chair in no acute distress. HEENT: Pale conjunctivae, no icterus. Neck: Supple. Abdomen: Obese, soft, nontender, nondistended. No guarding, no rebound. Extremities: No cyanosis, clubbing. Neuro: He was alert, awake, oriented. LABS: Hemoglobin and hematocrit 9.1 and 28.5, white count of 8.45, platelet count 256,000, sodium 140, potassium 4.2, chloride 100, bicarb 24, BUN of 18, creatinine 0.4, glucose of 98, calcium is 7.6. IMPRESSION AND PLAN: 1. Gastrointestinal bleeding, will continue supportive care. He has so far received 4 unit blood transfusion. He had 2 bowel movements today which were formed dark in color, we will repeat his CBC today, will continue PPIs b.i.d., will transfuse as needed. 2. Anemia. Will continue to watch for now, transfuse as needed, will start on iron C b.i.d. 3. Status post gastric bypass. Patient will take small frequent meals, avoid any NSAIDs. 4. Renal stones, urology is on board. 5. Chronic constipation. Will continue Colace at bedtime. He had 2 bowel movements today. 6. Hypothyroidism he is on Synthroid. 7. He has received 2 doses of octreotide per the primary care team which possibly can help with vasoconstriction the mesenteric vessels. 8. The patient will schedule an outpatient Bariatric surgeon, the patient's family interested in seeing Dr. William Trujillo in [place], they will call in the morning to schedule outpatient appointment. 9. Polymyalgia rheumatica aware. 10. History of syncopal episode and weakness aware. 11. The above plan of care discussed with the patient and the family bedside and all questions answered. Please call us with any further questions. cc: MD Nima Nesbitt MD MTDD
[2019-07-30] MEDS: COLACE PO SCH (21:55)
[2019-07-30] MEDS: XANAX PO SCH (21:55)
[2019-07-30] MEDS: VITAMIN B-12 PO SCH (21:55)
[2019-07-30] MEDS: FLOMAX PO SCH (21:55)
[2019-07-30] MEDS: ZOLOFT PO SCH (21:55)
[2019-07-30] MEDS: REMERON PO SCH (21:55)
[2019-07-30] MEDS: MAGNESIUM GLUCONATE PO SCH (22:07)
--- NOTE | 2019-07-31 04:09 | GASTROENTEROLOGY PROGRESS NOTE ---
DATE: 07/28/2019 The patient was not in the room at the time of visitation. His hemoglobin is 9.[address] of the abdomen and pelvis showed questionable mild circumferential wall thickening involving the colon near the hepatic flexure, extensive bilateral nephrolithiasis with a calcification that is very closely associated with the distal left ureter, which appears stable as compared to prior study, may be a chronic partially obstructing stone. The left renal collecting system is mildly prominent but less so than previous study. There is a 1.9 cm nonspecific hypodensity in the right hepatic lobe of the liver, which may represent focal fatty infiltration and possibly a cyst containing proteinaceous debris. His last blood transfusion was on 07/27. He is currently on PPI, [*]bowel regimen, holding any NSAIDs or blood thinners. If he continues to have bleeding, he would need a capsule endoscopy. This can be done as an outpatient as long as he maintains his current hemoglobin and does not exhibit further melena or drop in hematocrit. Dr. Loza will be following over the weekend. Please call if any questions or concerns. cc: Nima Goff MD
[2019-07-31] MEDS: SYNTHROID PO SCH (06:21)
[2019-07-31 06:57] LABS: BASO# 0.02 X1000 (0.0-0.2); BASO% 0.3 % (0.0-0.8); EOS# 0.31 X1000 (0.0-0.7); EOS% 4.4 % (0.0-10.0); HEMATOCRIT 25.8 % (42.0-52.0); HEMOGLOBIN 8.2 g/dL (14.0-18.0); LYMPH% 22.9 % (20.5-51.1); MCH 30.9 PG (27-31); MCHC 31.8 g/dL (33-37); MCV 97.4 FL (81-99); MONO# 0.48 X1000 (0.11-0.59); MONO% 6.9 % (1.7-9.3); MPV 11.4 FL (7.4-10.4); NEUT# 4.59 X1000 (1.4-6.5); NEUT% 65.5 % (42.2-75.2); PLT 257 X1000 (130-400); RBC 2.65 XMIL (4.7-6.1); RDW 15.6 % (11.5-14.5)
[2019-07-31 07:06] LABS: CALCIUM 7.5 mg/dL (8.8-10.2); CREATININE 1.3 mg/dL (0.7-1.2); POTASSIUM 4.2 mmol/L (3.5-5.1)
[2019-07-31] MEDS: PERIDEX MT SCH ×3 (09:13→20:09)
[2019-07-31] MEDS: PROTONIX IV SCH ×2 (09:13→20:10)
[2019-07-31] MEDS: ICAR-C PO SCH ×2 (09:13→20:09)
[2019-07-31] MEDS: VICON-C PO SCH (09:13)
[2019-07-31] MEDS: SODIUM CHLORIDE 0.9% INJ SCH ×2 (09:20→20:10)
[2019-07-31] MEDS ORDERED: NS 500 ML ONE ×2 (11:12→17:27)
--- NOTE | 2019-07-31 11:27 | PROVIDER PROGRESS NOTE ---
Progress Note SUBJECTIVE: Mr. Mckeon was sitting at the side of the bed, was at the bedside. He nad no bowel movements, but stated 'yesterday they were dark and formed stools', He denies any nausea, vomiting, or vomiting blood but his hemaglobin and hematacrit is dropping. Vitals: Temperature 98.3 degrees, pulse 86, respiratory rate 16, blood pressure 118/70, saturating 100% room air, body weight of 245 pounds 4 ounces, BMI of 31.5 kg meter square. Patient is obese sitting at the side of the bed, no acute distress. HEENT: Pale conjunctivae, no icterus. Neck: Supple. Abdomen: Obese, soft, nontender, nondistended. No guarding, no rebound. Extremities: No cyanosis, clubbing. Neuro: AO x 3 LABS: Hemoglobin and hematocrit 8.2 and 25.8, white count of 7.0, platelet count 257,000, sodium 141, potassium 4.2, chloride 110, bicarb 22, BUN of 17, creatinine 1.3, glucose of 108, calcium is 7.5. IMPRESSION AND PLAN: 1. Gastrointestinal bleeding, will continue supportive care. He has so far received 4 unit blood transfusion. No bowel movements today but yesterday it was formed dark in color, we will repeat his CBC today, will continue PPIs b.i.d., will transfuse as needed. 2. Anemia. Will continue to watch for now, PCP has ordered to transfuse one un it of PRCB today, he is on iron C b.i.d. 3. Status post gastric bypass. Patient will take small frequent meals, avoid any NSAIDs. 4. Renal stones, urology is on board. 5. Chronic constipation. Will continue Colace at bedtime. Had no bowel movements today. 6. Hypothyroidism he is on Synthroid. 7. He has received 2 doses of octreotide per the primary care team which possibly can help with vasoconstriction the mesenteric vessels. 8. The patient will schedule an outpatient Bariatric surgeon, the patient's family interested in seeing Dr. William Trujillo in [place], awaiting a call to schedule outpatient appointment. 9. Polymyalgia rheumatica aware. 10. History of syncopal episode and weakness aware. 11.. Repeat EGD and colonoscopy if the hemaglobin and hematacrit values keep park pping. 12. The above plan of care discussed with the patient and the family bedside and all questions answered. Please call us with any further questions. Signed : Asia FERNANDO (Asia Cantor) Spoke with Dr Goff and patient has started rectal bleeding and RBC tagged scan shows possible accumulation in the rectum. Will schedule for Colonoscopy with Dr Kulkarni in AM. Patient seen and examined. Agree with the above plan of care. Please call us with any further questions. (Santo Loza.)
[2019-07-31] MEDS ORDERED: GOLYTELY PO ONE (14:00)
[2019-07-31 15:26] LABS: HEMATOCRIT 28.9 % (42.0-52.0); HEMOGLOBIN 9.4 g/dL (14.0-18.0)
--- NOTE | 2019-07-31 16:39 | Diag Imaging Result Doc PS360 ---
EXAM: GI BLEED 07/31/2019 HISTORY: gi bleed TECHNIQUE: 21.2 mCi of technetium pertechnetate and cold PYP with scanning over the abdomen and pelvis. COMMENT: There is some accumulation of activity in the area of the rectum. This dissipates after about 45 minutes into the scan. Otherwise there is no definite focal accumulation of radiotracer to suggest a bleeding focus. IMPRESSION: The possibility of a bleeding focus in the rectum cannot be excluded. Electronically signed by Franklyn Ponce 07/31/2019 4:36 PM
[2019-07-31] MEDS: XANAX PO SCH (20:08)
[2019-07-31] MEDS: COLACE PO SCH (20:09)
[2019-07-31] MEDS: MAGNESIUM GLUCONATE PO SCH (20:09)
[2019-07-31] MEDS: VITAMIN B-12 PO SCH (20:09)
[2019-07-31] MEDS: REMERON PO SCH (20:09)
[2019-07-31] MEDS: FLOMAX PO SCH (20:10)
[2019-07-31] MEDS: ZOLOFT PO SCH (20:10)
[2019-07-31 20:49] LABS: HEMATOCRIT 31.1 % (42.0-52.0); HEMOGLOBIN 10.3 g/dL (14.0-18.0)
--- NOTE | 2019-07-31 21:51 | PROGRESS NOTE ---
DATE: 07/31/2019 SUBJECTIVE: Upon my arrival this morning, patient stated he felt reasonably well. Examination revealed pale conjunctivae. Hemoglobin and hematocrit was noted to decrease from yesterday. Soon after my evaluation, patient passed a large bowel movement which was primarily maroon in color. The patient was noted to have lightheadedness associated. The patient was typed and crossed 1 unit of packed red blood cells. Throughout the morning, patient had 3 additional maroon stools. Another unit of blood was typed and crossed for transfusion. Dr. Kulkarni was contacted. A bleeding scan was performed. This revealed the possibility of a bleeding focus in the rectum. This evening upon my arrival, patient voiced concern. Patient stated he felt reasonably well without significant fatigue or shortness of breath. He was receiving his 2nd unit of blood. Patient is prepared for a transfer to [facility] for intervention. There has been no evidence of fevers, chills, nausea or vomiting. OBJECTIVE: T-max 98.3 degrees, heart rate 84 to 105, respirations 14 to 18, blood pressure 101 to 142 over 70 to 81.General: Well nourished, well developed, no acute distress. Cardiovascular: Regular rate and rhythm. No significant murmurs, rubs, or gallops. Pulmonary: Clear to auscultation bilaterally. Abdomen: Soft, nontender, nondistended. Positive bowel sounds. Extremities: Moves all extremities well. No significant clubbing, cyanosis, or edema. Dermatologic: Evaluation reveals no evidence of rash. LABORATORY DATA: White blood cell count 7.00, hemoglobin 9.4, hematocrit 28.9, platelet counts 257,000. Sodium 141, potassium 4.2, chloride 110, bicarb 22, BUN 17, creatinine 1.3, glucose 108, calcium 7.5. ASSESSMENT AND PLAN: 1. Gastrointestinal bleed-as described on previous notes, esophagogastroduodenoscopy returned negative. Colonoscopy suggests old blood throughout the colon but without evidence of acute bleed. Differential diagnosis [*] includes a small intestinal bleed as well as bleeding from the bypass stomach or Mckenna limb. We attempted conservative management with IV Protonix, IV octreotide, and time. Despite this he continues to have bleeding. Will plan transfer to [facility] for further small-bowel evaluation and possible bariatric surgery consultation. We will continue to hold anti-platelet agents and anti-inflammatories. 2. Anemia-patient has been transfused a total of 6 units of packed red blood cells while hospitalized. We will continue to follow serial hemoglobin and hematocrit evaluations. 3. Syncopal episode- patient was diagnosed upon admission associated with blood loss anemia. He has had intermittent lightheadedness associated with bleeding but no further syncopal episodes. 4. Profound weakness- once patient's anemia has been addressed, he has achieved improvement. We will continue to follow serial hemoglobin and hematocrit evaluations. We will follow for any further evidence of gastrointestinal bleeding. 5. Distal left ureteral calcification, possibly representing a chronic partially obstructing stone-this was diagnosed incidentally per CT scan. Renal function remains acceptable. He denies significant symptoms. At present time, his gastrointestinal bleeding is more pressing. We will address this as above. We will plan to address his ureteral calcification once his GI bleed has been resolved. 6. Hypothyroidism-we will continue patient on replacement. 7. Osteoarthritis-patient's naproxen has been held. We will continue IV acetaminophen as needed. 8. Polymyalgia rheumatica-upon admission, patient was treated with prednisone 2.5 mg every other day. This has been held since hospitalization. The patient's myalgias are reasonably controlled at present time. We will continue to follow this closely as patient may need steroid intervention resumed. 9. Disposition-at this point, patient continues to require half-way care in a hospital setting. We will plan transfer to [facility] once able. cc: Nima Goff MD
[2019-08-01 02:00] LABS: HEMATOCRIT 29.2 % (42.0-52.0); HEMOGLOBIN 9.7 g/dL (14.0-18.0)
[2019-08-01] MEDS: SYNTHROID PO SCH (06:17)
[2019-08-01] MEDS: PERIDEX MT SCH (08:09)
[2019-08-01] MEDS: ICAR-C PO SCH (08:10)
[2019-08-01] MEDS: VICON-C PO SCH (08:10)
[2019-08-01] MEDS: PROTONIX IV SCH (08:11)
[2019-08-01] MEDS: SODIUM CHLORIDE 0.9% INJ SCH (08:11)
[2019-08-01 10:09] LABS: HEMATOCRIT 34.4 % (42.0-52.0); HEMOGLOBIN 11.2 g/dL (14.0-18.0)
[2019-08-01 10:18] VITALS: BP 110/71
--- NOTE | 2019-08-01 10:42 | PROVIDER PROGRESS NOTE ---
Progress Note S: No acute overnight events. No further rectal bleeding. Patient is awaiting transfer for evaluation of GI bleed. O: Last Vital Signs Temp 98.6 F 08/01/19 10:16 Pulse 64 08/01/19 10:16 Resp 18 08/01/19 10:16 BP 110/71 08/01/19 10:16 Pulse Ox 96 08/01/19 10:16 Height 6 ft 2 in Weight 245 lb 4 oz GEN: awake, alert, sitting upright HEENT: anicteric, MMM NECK: no JVD PULM: normal WOB ABD: obese EXT: no cce NEURO: nonfocal LABS: 07/31/19 07/31/19 08/01/19 06:20 06:20 01:55 WBC 7.00 Hgb 8.2 L D 9.7 L Plt Count 257 Sodium 141 Potassium 4.2 Chloride 110 H Carbon Dioxide 22 L Anion Gap 9 BUN 17 Creatinine 1.3 H Glucose 108 H EXAM: GI BLEED 07/31/2019 HISTORY: gi bleed TECHNIQUE: 21.2 mCi of technetium pertechnetate and cold PYP with scanning over the abdomen and pelvis. COMMENT: There is some accumulation of activity in the area of the rectum. This dissipates after about 45 minutes into the scan. Otherwise there is no definite focal accumulation of radiotracer to suggest a bleeding focus. IMPRESSION: The possibility of a bleeding focus in the rectum cannot be excluded. ASSESSMENT AND PLAN: Mr. Rodolfo Mckeon is a 68-year-old gentleman with history of hypertension, morbid obesity, status post gastric bypass in the remote past, polymyalgia rheumatica on prednisone, osteoarthritis on naproxen as well as baby aspirin, and notable family history for colorectal cancer, who presents GI bleeding with melena and symptomatic anemia. EGD showed normal RYGB anatomy. Colonoscopy showed old melenic blood seen throughout the colon. TI was not intubated to evaluate for UGIB bleeding. CT A/P showed wall-thickening at the hepatic flexure. Bleeding scan yesterday showed possible focus of bleeding in the rectum. He is awaiting transfer to outside hospital for further evaluation of SB bleed. He will likely need capsule endoscopy as he could be bleeding anywhere in the small bowel, gastric remnant, and even colon. His presentation was worrisome for abnormal weight loss and FHx of CRC. # Melena: unclear etiology; continue PPI IV BID; awaiting transfer # Anemia: hgb 11, avoid overtransfusion; transfuse for goal hgb 7-8, IVFs, clear liquid diet # Abnormal weight loss: will need repeat colonoscopy when acute issues resolve Discussed with primary team. Please call with questions.
--- NOTE | 2019-08-01 13:06 | DISCHARGE SUMMARY ---
ADMISSION DATE: 07/25/2019 DISCHARGE DATE: 08/01/2019 ADMISSION DIAGNOSES: 1. Profound weakness. 2. Near syncope. DISCHARGE DIAGNOSES: 1. Gastrointestinal bleed, etiology queried, but suspect small-bowel versus bypass stomach versus alexandra limb. 2. Anemia requiring a total of 6 units of packed red blood cell transfusion while hospitalized. 3. Syncopal episode secondary to blood loss anemia. 4. Profound weakness secondary to blood loss anemia. 5. Distal left ureteral calcification, possibly representing a chronic partially-obstructing stone, asymptomatic. 6. Hypothyroidism, present on arrival. 7. Polymyalgia rheumatica, present on arrival. 8. Osteoarthritis, present on arrival. CONSULTATIONS: 1. Dr. Kulkarni/Dr. Loza with Gastroenterology were consulted for further evaluation and management of GI bleed. 2. Dr. Aguilar with General Surgery was consulted for further evaluation and management of GI bleed in the setting of no definitive etiology per EGD and colonoscopy. 3. Dr. Zaragoza with Urology was consulted for further evaluation and management of possible chronically-obstructing left ureteral stone. PROCEDURES: 1. An EGD was performed on 07/26/2019, which revealed the mucosa of the esophagus appeared normal. The Z-line was noted at 40 cm from the incisors. Normal gastric pouch. Two visible deysi. No stigmata of recent bleeding. The mucosa appeared normal in the jejunum and ilium. Normal RYGB anatomy. 2. Colonoscopy was performed on 07/27/2019, which revealed small internal hemorrhoids. Old blood in the entire colon, extending up to the cecum. Retained stool in the colon, lavaged. No active bleeding noted in the colon. Suspect GI bleed from bypassed or alexandra limb. 3. CT scan of the abdomen and pelvis was performed on 07/28/2019, which revealed questionable mild circumferential wall thickening involving the colon near the hepatic flexure. Extensive bilateral nephrolithiasis with a calcification that is very closely associated with the distal left ureter, but it appears stable as compared to the previous study in 2016. It may be a chronic partially-obstructing stone. The left renal collecting system is mildly prominent, but less so than previous study. 4. A GI bleed nuclear tagged scan was performed on 07/31/2019, which revealed the possibility of a bleeding focus in the rectum cannot be excluded. HISTORY AND PHYSICAL EXAMINATION: See admit note. PHYSICAL EXAMINATION PRIOR TO DISCHARGE: Vital Signs: Temperature 98.4 degrees, heart rate 81, respirations 18, blood pressure is 123/92. General: Well nourished, well developed, no acute distress. Cardiovascular: Regular rate and rhythm. No significant murmurs, rubs, or gallops. Pulmonary: Clear to auscultation bilaterally. Abdomen: Soft, nontender, nondistended. Positive bowel sounds. Extremities: Moves all extremities well. No significant clubbing, cyanosis, or edema. Dermatologic: No evidence of rash. LABORATORY DATA PRIOR TO DISCHARGE: Hemoglobin 9.7, hematocrit 29.2. HOSPITAL COURSE: The patient was admitted as per history and physical examination. Hospital course per condition is as follows: 1. Gastrointestinal bleed. Upon admission, the patient was noted to be Hemoccult positive with a significant anemia. The patient was transfused 1 unit of packed red blood cells, and Gastroenterology was consulted. EGD and colonoscopy were performed as described above. Unfortunately, no definitive etiology was identified. Transfer to a higher level facility was offered at the end of last week, but the patient's family preferred to continue supportive care. Over the weekend, the patient was treated supportively. Unfortunately, he continued to require packed red blood cells to maintain adequate control. Initially, he was transfused at a hemoglobin of 7, but he became very symptomatic. Throughout the remainder of hospitalization, he was transfused at a hemoglobin of 8. A total of 6 units of packed red blood cells was provided while hospitalized. Over the weekend, in addition to supportive care, the patient was treated with octreotide and IV Protonix, although unsuccessfully. Because the care had been optimized at our facility, higher level of care was again requested on the day of discharge. The patient and his family agree. The patient will be transferred to [facility] to the Internal Medicine Service with GI consultation. Bariatric consultation may also be appropriate. We will continue to hold antiplatelet agents and nonsteroidal anti-inflammatory agents. 2. Weight loss. Over the course of the last 6 months, the patient has lost approximately 30 pounds. This raised the concern for possible GI malignancy. As above, no definitive etiology has been identified. We will remain aware with further investigation at a higher level facility. 3. Anemia. As above, the patient required transfusion of a total of 6 units of packed red blood cells. As above, the patient becomes very symptomatic with a hemoglobin of 7. For this reason, he was transfused with a hemoglobin of 8 while hospitalized. This will need to be monitored closely as well. 4. Syncopal/presyncopal episode. This was diagnosed in the emergency department. With treatment of his underlying anemia, he has not experienced a recurrence. Telemetry throughout hospitalization revealed no evidence of arrhythmia. 5. Profound weakness. Once again, with transfusion, he has achieved improvement. This likely is simply a consequence of his GI bleed. 6. Distal left ureteral calcification, possibly representing a chronically partially obstructing stone. This was diagnosed per CT scan. Interestingly, this was not largely different from CT scan in 2016. As the patient is asymptomatic and his renal function is stable, I do not feel aggressive intervention at the present time is warranted. He is followed closely by Dr. Berger as an outpatient. This will need to be arranged as an outpatient upon discharge. 7. Hypothyroidism. The patient was maintained on replacement while hospitalized. 8. Polymyalgia rheumatica. Upon admission, the patient was being treated with prednisone 2.5 mg every other day. While hospitalized, this has been held. His symptoms have remained reasonably controlled. If his symptoms return, we will need to reconsider resuming steroid intervention. In the setting of a GI bleed, it was felt that the risk outweighed the benefits. 9. Osteoarthritis. As an outpatient, the patient was taking nonsteroidals. This certainly potentially exacerbated his condition. These have been held. He has been treated with as needed acetaminophen while hospitalized. DISCHARGE CONDITION: Stable. DISPOSITION: Discharged to [facility]. DISCHARGE MEDICATIONS: 1. Alprazolam 1 mg at bedtime. 2. Vitamin B12, 1000 mcg at bedtime. 3. Colace 100 mg at bedtime. 4. Icar C one tablet twice daily. 5. Levothyroxine 200 mcg daily. 6. Ativan 0.5 mg IV every 4 hours p.r.n. 7. Vicon-C one tablet daily. 8. Mirtazapine 15 mg at bedtime. 9. Zofran 4 mg IV every 4 hours as needed. 10. Pantoprazole 40 mg IV twice daily. 11. Zoloft 100 mg at bedtime. 12. Tamsulosin 0.4 mg at bedtime. FOLLOWUP: The patient is to follow up with me upon discharge from [facility]. cc: Nima Goff MD
== END 2019-08-01 10:46 | disposition short-term general hospital (02) | DRG 394 ==
LOC: ED 10:53 → 4N 15:26
PROVIDERS: ADMIT Internal Medicine; ATTEND Internal Medicine